=== PATIENT | female | born 1965 | race Caucasian/White ===

== ENCOUNTER → 2016-04-03 | Outpatient (CLI) | payer MEDICARE, MEDICAID ==
--- NOTE | 2016-04-03 09:14 | OP ---
DATE OF PROCEDURE: 04/03/16 PREOPERATIVE DIAGNOSIS: 1. Solid right breast mass. POSTOPERATIVE DIAGNOSIS: 1. Solid right breast mass. PROCEDURE: 1. Sonographically guided needle core biopsy, right breast mass. SURGEON: Chilo Malhotra MD DRY BOX TENDER: None. ANESTHESIA: Local infiltration of 1%lidocaine. INDICATION: The patient is a 51-year-old female who on routine mammography actually ordered due to left breast pain was found to have a solid mass in the 12 o'clock position of the right breast. It was somewhat irregular in nature. She was brought to the Ultrasound Suite for sonographically guided biopsy today. FINDINGS: Several cores were taken with the needle extending through the specimen on ultrasound. Pathology is pending. PROCEDURE: After the patient was brought to the Ultrasound Suite, the right breast was examined with ultrasound and then the medial breast was prepped and draped with Betadine paint, local infiltration of anesthesia was obtained with 1 % lidocaine. A stab wound was made with a 15 blade and then the needle core biopsy device was introduced approximately 5 times and cores were taken. These were sent for pathological evaluation. Hemostasis was obtained with pressure and then with a single 3-0 Nylon simple suture. Sterile dressings were applied. Sterile pressure dressing was applied. The patient was then discharged home when stable. Estimated blood loss was less than 5 mL. #[id number] [facility]
--- NOTE | 2016-04-03 15:28 | US ---
EXAM DESCRIPTION: US GUIDANCE FOR NEEDLE PLACEMENT CLINICAL HISTORY: 51 y/o ,F, RIGHT BREAST MASS COMPARISON: Diagnostic evaluation 03/05/2016. IMPRESSION: Eight images are obtained during an ultrasound-guided needle biopsy of the retroareolar right breast nodule at 12 o'clock. The images demonstrate the needle traversing the nodule. No complication is shown on post procedure film. Technically successful ultrasound-guided needle biopsy right breast nodule retroareolar 12 o'clock. Electronically signed by: Marianne Fung 04/03/2016 15:27
== END | disposition home or self-care (01) ==
LOC: US 08:02
PROVIDERS: ATTEND Surgery
PROC: 0HBT3ZX Excision of Right Breast, Percutaneous Approach, Diagnostic (ICD-10-PCS; principal; 2016-04-03)
DX: N63 Unspecified lump in breast (principal); I10 Essential (primary) hypertension

== ENCOUNTER 2016-05-07 05:56 | Day surgery (SDC) | payer MEDICARE, MEDICAID ==
--- NOTE | 2016-05-06 13:12 | RAD ---
EXAM DESCRIPTION: XR CHEST 2 VIEWS CLINICAL HISTORY: pre op COMPARISON: April 04, 2014 IMPRESSION: Single AP portable upright view of the chest shows cardiac silhouette to be mildly enlarged without pulmonary vascular congestion. Lungs are mildly hypo aerated without acute appearing infiltrate or consolidation. No pleural effusion or pneumothorax. Right subclavian MediPort remains in good positioning. ADVICE CLERK shunt tubing over the left chest and abdomen is again noted. Electronically signed by: Nathaniel Garsia MD 05/06/2016 13:10
[2016-05-07] MEDS ORDERED: ceFAZolin SODIUM 1 GM VIAL ONE (06:59)
[2016-05-07] MEDS ORDERED: SODIUM CHL 0.9% 100ML MINI-BAG 100 ML IVPB ONE (06:59)
[2016-05-07] MEDS ORDERED: LACTATED RINGERS 1,000 ML ONE (06:59)
[2016-05-07] MEDS ORDERED: PROPOFOL 200 MG/20 ML VIAL IV ONE (07:00)
[2016-05-07] MEDS ORDERED: LIDOCAINE 1% 10 ML VIAL INJ ONE (07:00)
[2016-05-07] MEDS ORDERED: LIDOCAINE 1% 50 ML VIAL INJ ONE (09:05)
[2016-05-07] MEDS ORDERED: SODIUM BICARBONATE VIAL 50 MEQ/50 ML VIAL ONE (09:05)
[2016-05-07] MEDS ORDERED: MIDAZOLAM INJ 5 MG/5 ML VIAL ONE (09:13)
[2016-05-07] MEDS ORDERED: fentaNYL CITRATE INJ 50 MCG/ML AMP ONE (09:13)
[2016-05-07 09:52] VITALS: O2SAT 96
--- NOTE | 2016-05-07 11:52 | US ---
History: Right breast nodule 12:00 with needle biopsy demonstrating atypia. DATE OF SERVICE: 05/07/2016. Services provided: Ultrasound guided wire localization right breast nodule 12:00. Specimen ultrasound. FINDINGS: The skin was prepped in usual fashion. Following local infiltration with anesthetic and under ultrasound guidance, a 5 cm Ghiatas needle and wire were introduced with the wire traversing the ventral medial surface and extending through the nodule. Postprocedure ultrasound images are obtained and case and approach discussed with the surgeon. No complication. The mammography machine was having some technical errors and was not available for specimen radiograph. The excised specimen is ultrasounded with a lobulated nodule demonstrated in the specimen. IMPRESSION: Technically successful ultrasound-guided wire localization right breast nodule 12:00. Electronically signed by: Marianne Fung MD 05/07/2016 11:51 AM INDUSTRIAL TECHNOLOGY EDUCATION TEACHER
--- NOTE | 2016-05-07 13:14 | OP ---
DATE OF PROCEDURE: 05/07/16 PREOPERATIVE DIAGNOSIS: 1. Right breast mass status post needle core biopsy showing atypical hyperplasia. 2. Urinary tract infection. POSTOPERATIVE DIAGNOSIS: 1. Right breast mass status post needle core biopsy showing atypical hyperplasia. 2. Urinary tract infection. PROCEDURE: 1. Excision of right breast mass after needle localization. SURGEON: Chilo Malhotra MD. SAND CARRIER: None. ANESTHESIA: Local infiltration of 1% lidocaine with bicarb and IV sedation by Anesthesia. INDICATION: The patient is a 51-year-old female who on mammography was found to have a mass in her right breast. We did a needle core biopsy which revealed ductal hyperplasia. She was brought to the Surgical Suite today for excision of his area after needle localization. FINDINGS: The ultrasound revealed the mass within the specimen. The specimen was marked on four sides. PROCEDURE: After the patient underwent the needle localization in Radiology, she was brought to the Surgical Suite and prepped and draped in the usual sterile manner. Surgical time-out was taken. A superior sabino-areolar incision was fashioned first with a marking pen, then with infiltration of anesthesia. The skin was then incised with a 15 blade. Dissection was carried down through the skin and into the subcutaneous tissue using electrocautery. A deep flap was carried superiorly until the guidewire was identified. The guidewire was then divided and the tissue or deep to the guidewire superior, inferior, lateral and medial was excised using electrocautery. The specimen was marked as noted and then sent to for radiologic evaluation. the wound was irrigated with saline. Hemostasis was obtained with electrocautery. Hemostasis was noted to be adequate and the wound was closed in multiple layers of 3-0 and 4-0 simple sutures. The skin edges were approximated with 4-0 Vicryl subcuticular sutures, benzoin and Steri-Strips. Sterile dressings were applied. The patient was awakened and taken to the Recovery Room in good and stable condition. Estimated blood loss was less than 50 mL. All sponge, needle and instrument counts were correct. #[id number] [facility]
[2016-05-07 13:20] VITALS: BP 161/76; TEMP 97.6
--- NOTE | 2016-05-22 15:33 | US ---
Sonography of the specimen was performed confirm lesion removal. Electronically signed by: Marianne Fung MD 05/22/2016 3:31 PM [employer]
== END 2016-05-07 14:10 ==
LOC: AMB 05:56
PROVIDERS: ATTEND Surgery
DX: N60.91 Unspecified benign mammary dysplasia of right breast (principal); N39.0 Urinary tract infection, site not specified; E11.9 Type 2 diabetes mellitus without complications; K21.9 Gastro-esophageal reflux disease without esophagitis; I50.9 Heart failure, unspecified; I10 Essential (primary) hypertension; J44.9 Chronic obstructive pulmonary disease, unspecified; B19.20 Unspecified viral hepatitis C without hepatic coma; Z79.899 Other long term (current) drug therapy
CPT/HCPCS: 00400; 19125; 71020; 80048; 81001; 85025; 87086; 87088; 87186; 93005; J0690; J2250; J3010; J3490; J7050; J7120

== ENCOUNTER → 2016-07-16 | Outpatient (CLI) | payer MEDICARE, MEDICAID ==
--- NOTE | 2016-07-16 13:10 | MAM ---
History: Three months excision biopsy atypical ductal hyperplasia. DATE OF SERVICE: 07/16/2016 Services provided: Full field digital unilateral right diagnostic mammography. FINDINGS: Imaging is performed with the patient in a wheelchair. Comparison with 02/2016 preoperative study. Surgical changes right breast 12-1 o'clock. No mammographic abnormality is noted on today's exam. IMPRESSION: Benign exam. No mammographic evidence for malignancy in a patient status post excision of atypical ductal hyperplasia with good surgical margins. Recommendation: Bilateral mammography, due in February. Findings and recommendations were discussed with the patient. BIRAD CATEGORY: 2 BENIGN Electronically signed by: Marianne Fung MD 07/16/2016 1:09 PM CDT
== END ==
LOC: MAMMO 12:24
PROVIDERS: ATTEND Surgery
DX: N63 Unspecified lump in breast (principal); Z98.890 Other specified postprocedural states

== ENCOUNTER → 2017-07-15 | Outpatient (CLI) | payer MEDICARE, MEDICAID ==
--- NOTE | 2017-07-19 14:08 | MAM ---
EXAM DESCRIPTION: 3D Screening BILATERAL : Digital Mammography. CLINICAL HISTORY: 52 years Female ANNUAL SCREENING . No complaints. No family history breast cancer. Postmenopausal. Taking HRT 5 or more years ago. Right breast biopsy benign April 2016. COMPARISON: 2-D digital diagnostic right breast mammography 07/16/2016. 2-D digital screening bilateral study 03/05/2016. Ultrasound-guided right breast biopsy 05/07/2016.. No prior reports available. Reports from prior examinations also reviewed. Report from prior examination also reviewed. TECHNIQUE: Bilateral CC and MLO projection full-field images, 3-D tomosynthesis digital mammographic technique. Also bilateral synthesized CC/ MLO full-field images. CAD not utilized. FINDINGS: The breast parenchymal density pattern is: Scattered areas of fibroglandular density. No skin thickening or nipple retraction VAD injection port partially obscures the posterior right breast and pectoral muscle. Bilateral solitary microcalcifications. Prior biopsy site is noted anteriorly with minimal architectural distortion and central radiolucency. Density around the site is decreased since the follow-up study in July 2016.. No focal, stellate mass or density, focal asymmetry , and no suspicious microcalcifications bilaterally. Stable mammograms compared to prior study, taking into account differences in mammographic technique IMPRESSION: BI-RADS CATEGORY: 2 - BENIGN FINDINGS. FOLLOW UP: Routine digital bilateral screening, one year interval from July 2017. Written communication explaining the IMPRESSION and follow-up, will be mailed to the patient and referring health care provider. According to the [employer], yearly mammograms are recommended starting at age 40 and continuing as long as a woman is in good health. Any breast change noted on a breast self-exam should be reported promptly to the patient's healthcare provider. Breast MRI is recommended for women with an approximately 20-25% or greater lifetime risk of breast cancer, including women with a strong family history of breast or ovarian cancer and women who have been treated for Hodgkin's disease. A negative mammographic report should not delay tissue diagnosis in patients with significant clinical history or physical findings. Extremely dense breast tissue limits the sensitivity of digital mammography. Electronically signed by: Solitario Bae MD 07/19/2017 2:06 PM CDT
== END ==
LOC: MAMMO 10:00
PROVIDERS: ATTEND Surgery
DX: Z12.31 Encounter for screening mammogram for malignant neoplasm of breast (principal)

== ENCOUNTER → 2019-01-10 | Outpatient (CLI) | payer MEDICARE, MEDICAID | LOC: GOCC 15:46 | PROVIDERS: ATTEND Internal Medicine | DX: R30.0 Dysuria (principal) ==

== ENCOUNTER → 2019-02-03 | Outpatient (CLI) | payer MEDICARE, MEDICAID ==
--- NOTE | 2019-02-03 10:53 | RAD ---
XR ANKLE 3 OR MORE VIEWS, XR FOOT 3 OR MORE VIEWS, XR KNEE 4 OR MORE VIEWS, XR TIBIA FIBULA 2 VIEWS HISTORY: 53 years Female PAIN IN RIGHT ANKLE AND JOINTS OF RIGHT FOOT COMPARISON: None. TECHNIQUE: 3 view radiographs of the right knee, 2 view radiographs of the right lower leg, 3 view radiographs of the right ankle, 3 view radiographs of the right foot. FINDINGS: Imaged osseous structures of the right lower leg appear diffusely demineralized. This limits detection of subtle nondisplaced fractures. Within the limits of this exam, no acute fracture or dislocation is observed. Moderate joint space narrowing and osteophytosis is demonstrated in the right knee. Trace suprapatellar right knee joint effusion suspected. Ankle mortise appears symmetric. Medial and lateral clear spaces appear within normal limits. Mild osteophytosis at the lateral malleolus. Mild/moderate degenerative changes are scattered throughout the right mid and forefoot. Scattered vascular calcifications are noted. No acute soft tissue abnormality observed. IMPRESSION: No acute osseous injury detected within the limits of this exam. Diffuse demineralization limits detection of nondisplaced fractures. Degenerative changes in the right knee right ankle, and right foot. Trace right knee joint effusion suspected. Electronically signed by: Asif Rand MD 02/03/2019 10:51 AM [facility]
== END | disposition home or self-care (01) ==
LOC: RAD 07:57
PROVIDERS: ATTEND Orthopaedic Surgery
DX: M25.561 Pain in right knee (principal); M79.604 Pain in right leg; M25.571 Pain in right ankle and joints of right foot

== ENCOUNTER → 2019-03-22 | Outpatient (CLI) | payer MEDICARE, MEDICAID | LOC: GOCC 19:23 | PROVIDERS: ATTEND Internal Medicine | DX: R30.0 Dysuria (principal); R41.0 Disorientation, unspecified ==

== ENCOUNTER 2019-04-03 14:07 | Emergency (ER) | payer MEDICARE, MEDICAID ==
[2019-04-03] MEDS ORDERED: NEOMYCIN-BACITRACIN-POLYMYXIN 0.9 GM UD TOP ONE (14:20)
--- NOTE | 2019-04-03 15:24 | RAD ---
EXAM DESCRIPTION: Chest,1 View CLINICAL HISTORY: lethargy COMPARISON: 04 December 2016 TECHNIQUE: AP portable chest FINDINGS: An [id number] catheter seen in place on the patient's right with the distal tip in the region of the superior vena cava. The lungs are clear. The heart is within range of normal. The patient tubing is seen to traverse the left side of the chest. IMPRESSION: Unremarkable portable chest. Electronically signed by: Jose Angel Adrian MD 04/03/2019 3:23 PM [facility] [[email or web address]]
--- NOTE | 2019-04-03 15:34 | CT ---
EXAM DESCRIPTION: Cervical Spine CLINICAL HISTORY: falling out of wc COMPARISON: 13 March 2017 TECHNIQUE: Transaxial images were obtained without intravenous contrast media. Sagittal and coronal reconstruction was performed.This exam was performed according to our departmental dose-optimization program, which includes automated exposure control, adjustment of the mA and/or kV according to patient size and/or use of iterative reconstruction technique. FINDINGS: Mild convexity of the cervical spine to the right is observed. There is some evidence of posterior fossa atrophy with a posterior fossa drain extending into the cervical subarachnoid space. There is evidence of an extensive C1 and C2 laminotomy. Multilevel loss of disc height is observed throughout the cervical spine. There is evidence of an interbody fusion at the C3-4 level. Dense calcific atherosclerotic changes are observed in both carotid arteries. There is evidence of a moderate spinal stenosis at the C4-5 levels result of facet joint arthritis and central posterior osteophyte formation. Similar changes are also seen at the C5-6 and C6-7 levels. RN CLINICIAN shunt tubing is seen to traverse the left side of the neck. No fracturing is detected. The lung apices are clear. No extra spinous abnormality other than the dense carotid artery calcification is noted. IMPRESSION: 1. Posterior fossa and upper cervical postsurgical changes are observed with posterior fossa drainage. There is also a RN CLINICIAN shunt tubing traversing the left side of the neck. 2. Multilevel spinal stenosis is observed at C4-5 C5-6 and C6-7 level. 3. No evidence of fracturing is detected. Electronically signed by: Jose Angel Adrian MD 04/03/2019 3:32 PM ALTERATIONS TAILOR
--- NOTE | 2019-04-03 15:37 | CT ---
EXAM DESCRIPTION: Head CLINICAL HISTORY: falling out of wc COMPARISON: 04 April 2014 TECHNIQUE: Non contrast cranial CT.This exam was performed according to our departmental dose-optimization program, which includes automated exposure control, adjustment of the mA and/or kV according to patient size and/or use of iterative reconstruction technique. FINDINGS: The exam demonstrates evidence of posterior fossa craniectomy in the occipital/suboccipital region and evidence of upper cervical laminectomy with a posterior fossa drain. Encephalomalacia is observed in the inferior aspect of the cerebellum. A ventriculoperitoneal shunt is observed extending into the region of the third ventricle. The shunt was finally placed. The drainage catheter is observed to the patient's left. No tubing discontinuity is observed. The ventricles are decompressed. Encephalomalacia is observed in both frontal lobes. There is also evidence of a prior right frontal craniotomy. No evidence of hemorrhage is observed. No mass lesions or mass effect are observed. No significant interval changes observed from the prior exam. Portions of the paranasal sinuses and mastoid sinuses imaged are clear. The orbits as imaged are normal. IMPRESSION: Postsurgical and senescent changes are observed. There is been no significant interval change from the previous exam. No evidence of acute trauma is seen. Electronically signed by: Jose Angel Adrian MD 04/03/2019 3:36 PM [facility]
--- NOTE | 2019-04-03 16:07 | RAD ---
EXAM DESCRIPTION: Hip,Right 2 Views CLINICAL HISTORY: pain COMPARISON: None. TECHNIQUE: 2 views right FINDINGS: Degenerative changes are observed in the pubic symphysis. No acute hip fracture is detected. No evidence of dislocation is seen. No acute pelvic fracturing is seen. REFERRAL MANAGER shunt tubing is seen coiled in the upper abdomen. 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 No acute fracturing is detected. Electronically signed by: Jose Angel Adrian MD 04/03/2019 4:05 PM [facility]
[2019-04-03] MEDS ORDERED: FLUCONAZOLE 100 MG TAB PO ONE (16:12)
--- NOTE | 2019-04-03 16:24 | ED.PDOC ---
History of Present Illness - General Chief Complaint: Trauma Stated Complaint: falling out of WC Time Seen by Provider: 04/03/19 14:14 Source: patient, EMS notes reviewed, detention records - History of Present Illness Initial Comments: the patient is a 54-year-old female presenting from the detention secondary to repeated episodes of falling asleep and falling out of the wheelchair. 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 She has 2 fairly superficial ulcerations to the left lower extremity. The patient is easily arousable and quite jovial to talk to however she does all asleep pretty quickly when left alone. No evidence of fever. No evidence of any recent head injury though she reports that 6 or 8 months ago she fell and hit her head pretty hard. She has not had any seizures recently that she knows of. She has some mild right hip pain but moves it quite well on her own. She is in no distress. She is pleasant and cooperative. She just recently finished an antibiotic for a urinary tract infection.she was recently started on nortriptyline according to records. Timing/Duration: unsure Severity: moderate Improving Factors: nothing Worsening Factors: nothing Associated Symptoms: malaise Allergies/Adverse Reactions: Allergies Troleandomycin [From Emmanuel] Allergy (Verified 01/18/14 11:33) Horse-derived Products Adverse Reaction (Verified 05/06/16 13:50) Milk-related Compounds Adverse Reaction (Verified 05/06/16 13:50) Home Medications: Ambulatory Orders Cyclobenzaprine HCl [Flexeril] 10 mg PO Q8H PRN 04/20/12 Esomeprazole [Nexium] 40 mg PO DAILY 04/20/12 Furosemide [Lasix] 20 mg PO BID 04/20/12 Meloxicam [Mobic] 7.5 mg PO HS 04/20/12 Ondansetron HCl [Zofran] 4 mg PO Q6H PRN 04/20/12 Phenytoin Sodium Cap (ER Disp) [Dilantin] 100 mg PO BID 04/20/12 Potassium Chloride [Micro-K] 8 meq PO DAILY 04/20/12 Acetaminophen [Tylenol] 1,000 mg PO Q6HR PRN 04/03/19 Benzonatate Perles [Tessalon Perles] 100 mg PO Q8HR PRN 04/03/19 Cyclobenzaprine HCl [Flexeril] 10 mg PO Q8HR PRN 04/03/19 Famotidine 20 mg PO DAILY 04/03/19 Fe Fumarate-Fe Polysaccharide- [Integra] 1 cap PO WKLY 04/03/19 Folic Acid 1 mg PO DAILY 04/03/19 Mirtazapine 7.5 mg PO BEDTIME 04/03/19 Nortriptyline HCl 75 mg PO BEDTIME 04/03/19 OXcarbazepine [Trileptal] 300 mg PO BID 04/03/19 Review of Systems - Review of Systems Constitutional: States: malaise EENTM: States: no symptoms reported Respiratory: States: no symptoms reported Cardiology: States: no symptoms reported Gastrointestinal/Abdominal: States: no symptoms reported Genitourinary: States: no symptoms reported Musculoskeletal: States: see HPI Skin: States: no symptoms reported Neurological: States: see HPI Endocrine: States: no symptoms reported Hematologic/Lymphatic: States: no symptoms reported All other Systems: No Change from Baseline Past Medical History (General) - Patient Medical History Hx Seizures: Yes - Epilepsy Hx Asthma: Yes Hx of COPD: Yes Hx Congestive Heart Failure: Yes Hx Hypertension: Yes Hx Diabetes: Yes Hx Gastroesophageal Reflux: Yes Hx Hepatitis C: Yes Hx MRSA: No MRSA Source:: Wound - Vaccination History Hx Tetanus, Diphtheria Vaccination: - Unknown Hx Influenza Vaccination: Yes Hx Pneumococcal Vaccination: Yes - Social History Hx Tobacco Use: Yes Hx Alcohol Use: No Hx Depression: Yes Feels Threatened In Home Enviroment: No Hx Physical Abuse: No Hx Emotional Abuse: No Hx Suspected Abuse: No - Activities of Daily Living [facility] (if applicable[facility]:: [facility] (if applicable):: None - Female History Patient is a Female of Child Bearing Age (10 -59 yrs old): No Patient : No - Triage Comment ED Triage Comment: pt wheeled in via transport from detention service. pt voices falling asleep and out of wheelchair multiple times for several weeks. 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 No new pain. Respiratory: lungs clear, normal breath sounds, no respiratory distress, no accessory muscle use Cardiovascular/Chest: normal peripheral pulses, regular rate, rhythm Peripheral Pulses: radial,right: 2+, radial,left: 2+ Gastrointestinal/Abdominal: non tender, soft Rectal Exam: deferred Extremity: no calf tenderness, normal capillary refill, pedal edema, other - chronic contracture to the right lower extremity. 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 They do not appear infected. Comments: Vital Signs - 24 hr 04/03/19 04/03/19 04/03/19 14:27 15:28 15:37 Temperature 97.6 F Pulse Rate [ 78 84 81 brachial] Respiratory 18 20 Rate Blood Pressure 172/93 172/93 165/102 [Left Arm] O2 Sat by Pulse 94 L 93 L 90 L Oximetry 04/03/19 04/03/19 04/03/19 15:38 15:49 16:00 Temperature Pulse Rate [ 88 88 95 H brachial] Respiratory 18 Rate Blood Pressure 166/83 185/92 [Left Arm] O2 Sat by Pulse 94 L 93 L Oximetry Progress - Progress Progress: 04/03/19 16:28 the patient's a 54-year-old female presenting to emergency room secondary to repeated episodes of falling out of her wheelchair apparently. The patient is drowsy. Workup here including CT scan of the head and neck, x-ray of the chest and right hip films show any acute pathology. No evidence of stroke. No evidence of significant infection. She does have a mild yeast infection in her urine and he is given a dose of Diflucan here. I believe that most of the drowsiness and the falls seem to be occurring because of the drowsiness due to the sedating medications that she is taking including the Trileptal, Dilantin, nortriptyline, Remeron and Flexeril. options would be a discontinuation of one of the medications or reduction in doses. This is going to be left up to her primary care doctor who knows her history and medical problems better than I do. It is certainly possible that the recent urinary tract infection may potentiate the effects of these medications along with possibly an interaction with the recent antibiotic. She needs to be kept well hydrated. A seatbelt for her wheelchair that she can remove on purpose may prove beneficial in keeping her from falling out forward. She needs to follow up with the facility doctor in a day or 2 to discuss the above measures. No significant other acute pathology has been found here today. She is to return to the emergency room for any acute worsening. hilton thomas [id number] - Results/Orders Results/Orders: chest x-ray shows no acute pathology. X-ray of the right hip shows no evidence of any fracture or dislocation. CT scan of the head and cervical spine show multiple chronic findings but no evidence of acute pathology or acute trauma. See report for details. Laboratory Tests 04/03/19 04/03/19 04/03/19 14:40 14:40 14:40 WBC 10.4 RBC 3.86 L Hgb 13.2 Hct 39.4 MCV 101.9 H MCH 34.1 H MCHC 33.5 RDW 12.9 Plt Count 188 MPV 6.4 L Absolute Neuts (auto) 6.70 Absolute Lymphs (auto) 2.50 Absolute Monos (auto) 0.80 Absolute Eos (auto) 0.20 Absolute Basos (auto) 0.10 Neutrophils % 64.9 Lymphocytes % 24.3 Monocytes % 7.8 Eosinophils % 2.1 Basophils % 0.9 PT 10.3 INR 1.04 PTT (SP) 24.3 Sodium 140 Potassium 3.7 Chloride 100 L Carbon Dioxide 29 Anion Gap 14.7 BUN 13 Creatinine 1.00 BUN/Creatinine Ratio 13.0 Random Glucose 105 Serum Osmolality 279.9 Calcium 9.5 Magnesium 1.7 L Total Bilirubin 0.9 AST 47 H ALT 20 Alkaline Phosphatase 131 H Creatine Kinase 85 CK-MB (CK-2) 4.0 CK-MB (CK-2) % Not Reportable Troponin I 0.02 B-Natriuretic Peptide 74.0 Serum Total Protein 6.6 Albumin 2.9 L Globulin 3.7 H Albumin/Globulin Ratio 0.8 L TSH 1.46 Urine Color Urine Appearance Urine pH Ur Specific Dinosaur Urine Protein Urine Glucose (UA) Urine Ketones Urine Blood Urine Nitrite Urine Bilirubin Urine Urobilinogen Ur Leukocyte Esterase Urine RBC Urine WBC Ur Epithelial Cells Urine Bacteria Urine Mucus Urine Yeast Phenytoin 9.7 L 04/03/19 15:45 WBC RBC Hgb Hct MCV MCH MCHC RDW Plt Count MPV Absolute Neuts (auto) Absolute Lymphs (auto) Absolute Monos (auto) Absolute Eos (auto) Absolute Basos (auto) Neutrophils % Lymphocytes % Monocytes % Eosinophils % Basophils % PT INR PTT (SP) Sodium Potassium Chloride Carbon Dioxide Anion Gap BUN Creatinine BUN/Creatinine Ratio Random Glucose Serum Osmolality Calcium Magnesium Total Bilirubin AST ALT Alkaline Phosphatase Creatine Kinase CK-MB (CK-2) CK-MB (CK-2) % Troponin I B-Natriuretic Peptide Serum Total Protein Albumin Globulin Albumin/Globulin Ratio TSH Urine Color Yellow Urine Appearance Sl cloudy Urine pH 6.0 Ur Specific Dinosaur 1.020 Urine Protein Negative Urine Glucose (UA) Negative Urine Ketones Negative Urine Blood Negative Urine Nitrite Negative Urine Bilirubin Negative Urine Urobilinogen 1.0 Ur Leukocyte Esterase Negative Urine RBC 0 Urine WBC 1-3 Ur Epithelial Cells 5-10 Urine Bacteria 0 Urine Mucus Trace Urine Yeast 2+ budding H Phenytoin flu was negative. EKG shows normal sinus rhythm at 78 bpm. Q wave in inferior leads. No definitive ST segment or T-wave changes indicative of acute ischemia. Borderline prolonged QT interval. Borderline LVH. Departure - Departure Clinical Impression: Has daytime drowsiness, Yeast UTI Medication adverse effect Qualifiers: Encounter type: initial encounter Qualified Code(s): T50.905A - Adverse effect of unspecified drugs, medicaments and biological substances, initial encounter Disposition: Discharge to SNF Condition: Good Departure Forms: ED Discharge - Pt. Copy, Patient Portal Self Enrollment Diet: diabetic diet Activity: increase activity as tolerated Referrals: RACHEAL BUSTOS [Primary Care Provider] - 1-2 Days Home Medications: Ambulatory Orders Cyclobenzaprine HCl [Flexeril] 10 mg PO Q8H PRN 04/20/12 Esomeprazole [Nexium] 40 mg PO DAILY 04/20/12 Furosemide [Lasix] 20 mg PO BID 04/20/12 Meloxicam [Mobic] 7.5 mg PO HS 04/20/12 Ondansetron HCl [Zofran] 4 mg PO Q6H PRN 04/20/12 Phenytoin Sodium Cap (ER Disp) [Dilantin] 100 mg PO BID 04/20/12 Potassium Chloride [Micro-K] 8 meq PO DAILY 04/20/12 Acetaminophen [Tylenol] 1,000 mg PO Q6HR PRN 04/03/19 Benzonatate Perles [Tessalon Perles] 100 mg PO Q8HR PRN 04/03/19 Cyclobenzaprine HCl [Flexeril] 10 mg PO Q8HR PRN 04/03/19 Famotidine 20 mg PO DAILY 04/03/19 Fe Fumarate-Fe Polysaccharide- [Integra] 1 cap PO WKLY 04/03/19 Folic Acid 1 mg PO DAILY 04/03/19 Mirtazapine 7.5 mg PO BEDTIME 04/03/19 Nortriptyline HCl 75 mg PO BEDTIME 04/03/19 OXcarbazepine [Trileptal] 300 mg PO BID 04/03/19 Additional Instructions: the patient's a 54-year-old female presenting to emergency room secondary to repeated episodes of falling out of her wheelchair apparently. The patient is drowsy. Workup here including CT scan of the head and neck, x-ray of the chest and right hip films show any acute pathology. No evidence of stroke. No evidence of significant infection. She does have a mild yeast inf ection in her urine and he is given a dose of Diflucan here. I believe that most of the drowsiness and the falls seem to be occurring because of the drowsiness due to the sedating medications that she is taking including the Trileptal, Dilantin, nortriptyline, Remeron and Flexeril. options would be a discontinuation of one of the medications or reduction in doses. This is going to be left up to her primary care doctor who knows her history and medical problems better than I do. It is certainly possible that the recent urinary tract infection may potentiate the effects of these medications along with possibly an interaction with the recent antibiotic. She needs to be kept well hydrated. A seatbelt for her wheelchair that she can remove on purpose may prove beneficial in keeping her from falling out forward. She needs to follow up with the facility doctor in a day or 2 to discuss the above measures. No significant other acute pathology has been found here today. consideration sh ould be given to holding the Remeron dose tonight. left lower extremity ulcers were redressed prior to discharge. She is to return to the emergency room for any acute worsening.
[2019-04-03 17:19] VITALS: BP 180/83; TEMP 97.5; O2SAT 95
== END 2019-04-03 17:00 ==
LOC: ER 14:07
DX: R40.0 Somnolence (principal); T50.995A Adverse effect of other drugs, medicaments and biological substances, initial encounter; B37.49 Other urogenital candidiasis; M25.551 Pain in right hip; M48.02 Spinal stenosis, cervical region; F32.9 Major depressive disorder, single episode, unspecified; K21.9 Gastro-esophageal reflux disease without esophagitis; J44.9 Chronic obstructive pulmonary disease, unspecified; E11.9 Type 2 diabetes mellitus without complications; I11.0 Hypertensive heart disease with heart failure; G40.909 Epilepsy, unspecified, not intractable, without status epilepticus; I50.9 Heart failure, unspecified; W05.0XXA Fall from non-moving wheelchair, initial encounter; Y92.129 Unspecified place in nursing home as the place of occurrence of the external cause; Z86.19 Personal history of other infectious and parasitic diseases; Z87.891 Personal history of nicotine dependence; Z79.899 Other long term (current) drug therapy; Z88.8 Allergy status to other drugs, medicaments and biological substances

== ENCOUNTER → 2019-07-13 | Outpatient (CLI) | payer MEDICARE, MEDICAID | LOC: GOCC 13:23 | PROVIDERS: ATTEND Internal Medicine | DX: N39.0 Urinary tract infection, site not specified (principal) ==